=== PATIENT | male | born 1975 | race Two or more races ===

== ENCOUNTER 2019-08-14 04:32 | Emergency (ER) | payer MEDICAID, OTHER ==
[~2019-08-14] VITALS: Ht 172.7 cm; Wt 81.6 kg
[2019-08-14 04:38] VITALS: BP 164/92
== END 2019-08-14 05:28 | disposition left against medical advice (07) ==
LOC: ER 04:32
DX: R06.02 Shortness of breath (principal); Z53.21 Procedure and treatment not carried out due to patient leaving prior to being seen by health care provider